=== PATIENT | female | born 1980 | race Caucasian/White ===

== ENCOUNTER → 2023-12-28 09:39 | Outpatient (REF) | payer OTHER, SELFPAY | LOC: RAD 09:39 | PROVIDERS: ATTENDING PHYSICIAN Internal Medicine | DX: K40.90 Unilateral inguinal hernia, without obstruction or gangrene, not specified as recurrent (principal) | CPT/HCPCS: 76705 ==

== ENCOUNTER 2024-02-18 06:26 | Outpatient (RCR) | payer OTHER, SELFPAY | END 2024-02-18 23:59 | disposition home or self-care (01) | LOC: RPT 06:26 | PROVIDERS: ATTENDING PHYSICIAN Internal Medicine | DX: M62.08 Separation of muscle (nontraumatic), other site (principal); Z73.6 Limitation of activities due to disability | CPT/HCPCS: 97163; 97530 ==

== ENCOUNTER 2024-04-01 11:56 | Outpatient (RCR) | payer OTHER, SELFPAY | END 2024-04-01 23:59 | disposition home or self-care (01) | LOC: RPT 11:56 | PROVIDERS: ATTENDING PHYSICIAN Internal Medicine | DX: M62.08 Separation of muscle (nontraumatic), other site (principal); Z73.6 Limitation of activities due to disability; M62.81 Muscle weakness (generalized); R27.8 Other lack of coordination; K40.90 Unilateral inguinal hernia, without obstruction or gangrene, not specified as recurrent; M62.838 Other muscle spasm | CPT/HCPCS: 97110; 97530 ==

== ENCOUNTER 2024-05-07 09:52 | Outpatient (RCR) | payer OTHER, SELFPAY | END 2024-05-07 23:59 | disposition home or self-care (01) | LOC: RPT 09:52 | PROVIDERS: ATTENDING PHYSICIAN Internal Medicine | DX: M62.81 Muscle weakness (generalized) (principal); R27.8 Other lack of coordination; M62.08 Separation of muscle (nontraumatic), other site; Z73.6 Limitation of activities due to disability | CPT/HCPCS: 97110; 97530 ==

== ENCOUNTER 2024-05-30 09:10 | Outpatient (RCR) | payer OTHER, SELFPAY | END 2024-05-30 23:59 | disposition home or self-care (01) | LOC: RPT 09:10 | PROVIDERS: ATTENDING PHYSICIAN Internal Medicine | DX: M62.08 Separation of muscle (nontraumatic), other site (principal); M62.81 Muscle weakness (generalized); R27.8 Other lack of coordination; Z73.6 Limitation of activities due to disability | CPT/HCPCS: 97110; 97530 ==

== ENCOUNTER 2024-06-27 11:59 | Outpatient (RCR) | payer OTHER, SELFPAY | END 2024-06-27 23:59 | disposition home or self-care (01) | LOC: RPT 11:59 | PROVIDERS: ATTENDING PHYSICIAN Internal Medicine | DX: M62.08 Separation of muscle (nontraumatic), other site (principal); M62.81 Muscle weakness (generalized); R27.8 Other lack of coordination; Z73.6 Limitation of activities due to disability | CPT/HCPCS: 97110; 97530 ==

== ENCOUNTER 2024-07-25 08:55 | Outpatient (RCR) | payer OTHER, SELFPAY | END 2024-07-25 23:59 | disposition home or self-care (01) | LOC: RPT 08:55 | PROVIDERS: ATTENDING PHYSICIAN Internal Medicine | DX: M62.08 Separation of muscle (nontraumatic), other site (principal); Z73.6 Limitation of activities due to disability; M62.81 Muscle weakness (generalized); R27.8 Other lack of coordination | CPT/HCPCS: 97110; 97530 ==

== ENCOUNTER 2024-08-15 09:05 | Outpatient (RCR) | payer OTHER, SELFPAY | END 2024-08-15 09:33 | disposition home or self-care (01) | LOC: RPT 09:05 | PROVIDERS: ATTENDING PHYSICIAN Internal Medicine | DX: M62.08 Separation of muscle (nontraumatic), other site (principal); Z73.6 Limitation of activities due to disability; M62.81 Muscle weakness (generalized); R27.8 Other lack of coordination | CPT/HCPCS: 97110; 97530 ==